=== PATIENT | female | born 1950 | race Two or more races ===

== ENCOUNTER → 2016-07-30 | Day surgery (SDC) | payer MEDICARE ==
[~2016-07-30] MED LIST: LIDOCAINE 2% INJ 20 MG/ML (20 ML MDV) ONE; LIDOCAINE 2% INJ 20 MG/ML SQ ONE
[2016-07-30 14:04] VITALS: BP 136/73; PULSE 101; TEMP 98.8
--- NOTE | 2016-07-30 15:05 | IR ---
PICC LINE PLACEMENT: HISTORY: Infection requiring long-term antibiotic therapy PROCEDURE: Ultrasound and fluoroscopic guidance of PICC line placement. COMPLICATIONS: None ANESTHESIA: 1. 1% Lidocaine locally. FINDINGS/TECHNIQUE: The procedure was explained to the patient. The risks, complications, benefits and alternatives were discussed and any questions were answered. Informed consent was obtained. The patient was placed supine on the fluoroscopic table and prepped and draped in the usual sterile formerly [facility], [facility] ion. Utilizing a 21 gauge needle and sonographic and fluoroscopic guidance, access in the vein was achieved and there is placement of a 0.018 guidewire. The vein is patent. A 4-F sheath was placed o robert the guidewire. The guidewire and dilator were removed and a 4-F. PICC line was placed through th e sheath with the tip at the level of the SVC. The sheath was removed, the catheter was flushed and sutured into position. The patient was stable throughout the procedure and remained stable upon disc harge from the Department of Radiology. The vein puncture was patent under ultrasound. A yates scale image was obtained to document patency of the vein punctured. All elements of the maximal barrier technique were utilized. FLUOROSCOPY TIME: 0.4 minute IMPRESSION: Successful PICC line placement under ultrasound and fluoroscopic guidance.
== END ==
LOC: CATHCVL 13:28
PROVIDERS: ATTEND Radiology Diagnostic Radiology
DX: B99.9 Unspecified infectious disease (principal)
CPT/HCPCS: 36569; 76937; 77001; C1751; C1769; J2001

== ENCOUNTER 2016-08-15 04:31 | Emergency (ER) | payer MEDICARE ==
[2016-08-15] MEDS ORDERED: ALTEPLASE 2 MG VIAL (CATHFLO) IV STA (05:06)
--- NOTE | 2016-08-15 05:16 | ED ---
General Adult HPI - General Source: patient, family Mode of arrival: wheelchair Limitations: no limitations - History of Present Illness -: days(s) <Mateo Harrell - Last Filed: 08/15/16 07:16> <Cruz Baker - Last Filed: 08/15/16 10:43> - General Chief complaint: Recheck/Abnormal Lab/Rx Stated complaint: Pick Line complication Time Seen by Provider: 08/15/16 04:43 - History of Present Illness Initial comments: This patient is a 66-year-old woman presenting because her PICC line appears to be flowing slower. Patient states that for 2 weeks it is been taking longer than the expected hour and 10 minutes to run the dose of vancomycin. She states that over about the past 4 days it is been taking anywhere from 2 hours to tonight it took 4 hours. They had called the infusion team about 4 days ago and were told that if things slowed she should come to the emergency department. She therefore presented today. Patient denies any other symptoms. There is no real pain at the insertion site. Patient is currently denying fevers, palpitations, chest pain or dyspnea. She states she is having the PICC line to receive vancomycin related to infection of a knee prosthesis that had been subsequently removed. (Mateo Harrell) - Related Data Home Medications Medication Instructions Recorded Confirmed Losartan Potassium [Cozaar] 50 mg PO DAILY 07/16/14 08/15/16 Montelukast Sodium [Singulair] 10 mg PO HS PRN 07/16/14 08/15/16 Multivitamins, Thera [Multivitamin] 1 tab PO DAILY 07/16/14 08/15/16 Potassium Chloride [Klor-Con 10] 10 meq PO DAILY 07/16/14 08/15/16 Sertraline HCl [Zoloft] 50 mg PO HS 07/16/14 08/15/16 Torsemide [Demadex] 20 mg PO DAILY 07/16/14 08/15/16 Albuterol Sulfate [Ventolin HFA] 2 puff INHALATION RT-Q6H PRN 07/17/14 08/15/16 Beclomethasone Dipropionate [Qvar 2 puff INHALATION RT-HS PRN 07/17/14 08/15/16 80 mcg/puff] Simvastatin [Zocor] 20 mg PO HS 12/08/14 08/15/16 Aspirin EC [Ecotrin Low Dose] 81 mg PO DAILY 09/19/15 08/15/16 Diltiazem HCl [Diltiazem 24Hr ER] 120 mg PO DAILY 10/11/15 08/15/16 Glimepiride [Amaryl] 1 mg PO HS 08/15/16 08/15/16 HYDROcodone/APAP 7.5-325MG [[place] 1 - 2 tab PO Q6HR PRN 08/15/16 08/15/16 7.5] Sennosides-Docusate Sodium 2 tab PO HS 08/15/16 08/15/16 [Senokot-S] guaiFENesin [Mucinex] 600 mg PO Q12HR PRN 08/15/16 08/15/16 Previous Rx's Medication Instructions Recorded Vancomycin 1,000 mg IVPB Q24HR #42 bag 07/23/16 Ferrous Sulfate [Iron (65 MG 325 mg PO BID-W/MEALS tab 07/26/16 Elemental)] Glimepiride [Amaryl] 2 mg PO AC-BRKFST tab 07/26/16 Magnesium Hydroxide [Milk of 2,400 mg PO DAILY PRN #0 ml 07/26/16 Magnesia Concentrate] Allergies Allergy/AdvReac Type Severity Reaction Status Date / Time codeine AdvReac Nausea & Verified 08/15/16 07:39 Vomiting Review of Systems ROS Other: All systems not noted in ROS Statement are negative. Constitutional: Denies: fever, chills, weakness Respiratory: Denies: cough, dyspnea Cardiovascular: Denies: chest pain, palpitations, syncope Gastrointestinal: Denies: vomiting, diarrhea Neurological: Denies: headache, weakness <Mateo Harrell - Last Filed: 08/15/16 07:16> ROS Other: All systems not noted in ROS Statement are negative. <Cruz Baker - Last Filed: 08/15/16 10:43> ROS Statement: Those systems with pertinent positive or pertinent negative responses have been documented in the HPI. Past Medical History Past Medical History: Asthma, Chest Pain / Angina, Diabetes Mellitus, GERD/ Reflux, Hyperlipidemia, Hypertension, Musculoskeletal Disorder, Osteoarthritis ( OA), Seizure Disorder Additional Past Medical History / Comment(s): no seizures since teens, hx. angina , spinal stenosis, constipation. History of Any Multi-Drug Resistant Organisms: None Reported Past Surgical History: Breast Surgery, Heart Catheterization, Joint Replacement , Tonsillectomy, Tubal Ligation Additional Past Surgical History / Comment(s): FOOT SURGERY, CATARACTS BILAT, CARPAL TUNNEL SURGERY RIGHT HAND, breast reduction, TOTAL RIGHT KNEE, irrigation and debridement of right knee with antibiotic spacer 07/23/16 Past Anesthesia/Blood Transfusion Reactions: Previous Problems w/ Anesthesia Additional Past Anesthesia/Blood Transfusion Reaction / Comment(s): one episode of trouble waking after anesthesia Past Psychological History: Anxiety Additional Psychological History / Comment(s): lives in the family home with her . Retired labor. 2 adult children one lives close by one in [place]. Tobacco smoking stopped when she was 39. Assessment alcohol use international travel to [facility] 11 years ago. No animal exposures. No change the home environment Smoking Status: Former smoker Past Alcohol Use History: Rare Additional Past Alcohol Use History / Comment(s): SMOKED FOR APPROX 27 YEARS 1PPD. Past Drug Use History: None Reported - Past Family History Brother(s) Family Medical History: Cancer Additional Family Medical History / Comment(s): COLON CANCER Sister(s) Family Medical History: Cancer Additional Family Medical History / Comment(s): COLON CANCER Mother Family Medical History: Cancer, Diabetes Mellitus Additional Family Medical History / Comment(s): 3 BLOCKED ARTERIES. COLON CANCER <Mateo Harrell - Last Filed: 08/15/16 07:16> General Exam Limitations: no limitations General appearance: alert, in no apparent distress Head exam: Present: atraumatic, normocephalic Respiratory exam: Present: normal lung sounds bilaterally. Absent: respiratory distress, wheezes, rales, rhonchi Cardiovascular Exam: Present: regular rate, normal rhythm, normal heart sounds. Absent: systolic murmur, diastolic murmur, rubs, gallop Skin exam: Present: warm, dry, intact, normal color, other (The patient's insertion site in the left antecubital fossa appears normal and there is no tenderness or drainage). Absent: rash <Mateo Harrell - Last Filed: 08/15/16 07:16> Course <Mateo Harrell - Last Filed: 08/15/16 07:16> <Cruz Baker - Last Filed: 08/15/16 10:43> Vital Signs 08/15/16 08/15/16 04:35 09:49 Temperature 98.7 F Pulse Rate 100 91 Respiratory 20 16 Rate Blood Pressure 148/76 144/75 O2 Sat by Pulse 96 98 Oximetry - Reevaluation(s) Reevaluation #2: 08/15/16 07:17 We attempted to clear the PICC line using alteplase. After this was withdrawn and we were still not able to drive back or flush the line. Patient probably will require PICC line replacement in the morning. (Mateo Harrell) Medical Decision Making <Mateo Harrell - Last Filed: 08/15/16 07:16> <Cruz Baker - Last Filed: 08/15/16 10:43> - Medical Decision Making I wasn't doses patient from Dr. Blunt. We did contact interventional radiologist Dr. Blunt who will do the procedure. Patient will be sent up to the [facility] for a new PICC line. Patient be discharged from the ER at this time. (Cruz Baker) Disposition <Mateo Harrell - Last Filed: 08/15/16 07:16> Time of Disposition: 10:43 <Cruz Baker - Last Filed: 08/15/16 10:43> Clinical Impression: Occlusion of peripherally inserted central catheter (PICC) line Disposition: HOME SELF-CARE Condition: Stable Instructions: Peripherally Inserted Central Catheters and Midline Catheters (ED ) Additional Instructions: Please return to the Emergency Department if symptoms worsen or any other concerns. Referrals: Duong Vazquez MD [Primary Care Provider] - 1-2 days
[2016-08-15 09:50] VITALS: RESP 16
[2016-08-15] MEDS ORDERED: LIDOCAINE 2% INJ 20 MG/ML SQ ONE (11:21)
--- NOTE | 2016-08-15 11:55 | IR ---
PICC line replacement HISTORY: Malfunctioning PICC line Under real-time fluoroscopy the catheter was noted to be the dictated in the superior vena cava rathe r than at the cavoatrial junction. By history the catheter is not functioning correctly. Following informed consent the skin around the catheter was prepped as was the catheter. Patient was draped. Lidocaine used for local anesthesia. Catheter was partially withdrawn and cut. Wire was used to exchange the indwelling catheter for a peel-away sheath. Catheter was tailored to appropriate marty th and advanced such that the distal tip is at the cavoatrial junction, spot image obtained verifying placement. Catheter was fixed to the skin. Hemostasis achieved. Catheter was aspirated and flushed w ith sterile saline. No immediate complication. IMPRESSION: Status post PICC line exchange. This procedure performed by the undersigned.
[2016-08-15 11:56] VITALS: TEMP 98.2
[2016-08-15 12:34] VITALS: BP 134/62; PULSE 80
== END 2016-08-15 12:49 | disposition home or self-care (01) ==
LOC: EC 04:31
DX: T82.898A Other specified complication of vascular prosthetic devices, implants and grafts, initial encounter (principal); I10 Essential (primary) hypertension; J45.909 Unspecified asthma, uncomplicated; F41.9 Anxiety disorder, unspecified; Z87.891 Personal history of nicotine dependence; Z98.890 Other specified postprocedural states; Z79.84 Long term (current) use of oral hypoglycemic drugs; Z88.5 Allergy status to narcotic agent; Z79.82 Long term (current) use of aspirin; Z79.899 Other long term (current) drug therapy; Z79.2 Long term (current) use of antibiotics
CPT/HCPCS: 36569; 76937; 77001; 99284; C1751; C1769 ×2; J2001; J2997

== ENCOUNTER → 2016-08-28 | Outpatient (CLI) | payer MEDICARE ==
[~2016-08-28] MED LIST changes: +DAPTOmycin 500 MG in SODIUM CHLORIDE 0.9% 50 ML IV ONE; -LIDOCAINE 2% INJ 20 MG/ML (20 ML MDV) ONE; -LIDOCAINE 2% INJ 20 MG/ML SQ ONE; +SODIUM CHLORIDE 0.9% 250 ML in EMPTY BAG 1 BAG IV PRN; +SODIUM CHLORIDE 0.9% 500 ML in EMPTY BAG 1 BAG IV PRN
[2016-08-28 14:21] VITALS: BP 104/56; PULSE 86; RESP 16; TEMP 98.4
== END | disposition home or self-care (01) ==
LOC: PROCWHC3 13:56
PROVIDERS: ATTEND Internal Medicine Infectious Disease
DX: T84.59XD Infection and inflammatory reaction due to other internal joint prosthesis, subsequent encounter (principal)
CPT/HCPCS: 96365; J0878

== ENCOUNTER → 2016-10-22 | Outpatient (CLI) | payer MEDICARE ==
[2016-10-22 10:18] LABS: EKG EKG PERFORMED
[2016-10-22 10:49] LABS: Anion Gap 16 mmol/L; Carbon Dioxide 24 mmol/L (22-30); Chloride 101 mmol/L (98-107); Potassium 4.2 mmol/L (3.5-5.1); Sodium 141 mmol/L (137-145)
[2016-10-22 10:53] LABS: Partial Thromboplastin Time 24.5 sec (22.0-30.0)
[2016-10-22 10:58] LABS: Aty Lym Flag Slight; CH 26.7; HCT 36.1 % (34.0-46.0); HDW 2.29; HGB 11.4 gm/dL (11.4-16.0); Hypochromasia Slight; MCH 27.2 pg (25.0-35.0); MCHC 31.6 g/dL (31.0-37.0); MCV 86.1 fL (80.0-100.0); Mean Platelet Volume 8.2; RBC 4.19 m/uL (3.80-5.40); RDW 14.4 % (11.5-15.5); WBC 10.3 k/uL (3.8-10.6); WBC (Perox) 9.33
[2016-10-22 11:05] LABS: INR 1.1 (<1.1); Prothrombin Time 10.8 sec (9.0-12.0)
[2016-10-22 11:13] LABS: Add Differential Manual Differential
[2016-10-22 11:15] LABS: Manual Review Performed; Nucleated Red Blood Cells 0 /100 WBC (0-0); Total Cells Counted 100
[2016-10-22 11:16] LABS: Large Platelets Present
== END | disposition home or self-care (01) ==
LOC: LABPAT 09:13
PROVIDERS: ATTEND Orthopaedic Surgery
DX: Z01.810 Encounter for preprocedural cardiovascular examination (principal); Z01.812 Encounter for preprocedural laboratory examination
CPT/HCPCS: 80051; 85025; 85610; 85730; 87070; 93005

== ENCOUNTER 2016-11-05 06:22 | Inpatient (IN) | payer MEDICARE ==
[2016-10-30 15:46] VITALS: BMI 36.3
--- NOTE | 2016-11-04 16:56 | HP ---
DATE OF ADMISSION: 11/05/2016 CHIEF COMPLAINT: Right knee pain. HISTORY OF PRESENT ILLNESS: The patient is a 66-year-old retired female who previously underwent right total knee arthroplasty with subsequent extraction for an infection on 07/23/2016. She received IV antibiotics and has been cleared by her infectious disease specialist for re-implantation. She denies fevers or chills. She has partial weight-bearing on that leg. Past medical history is significant for: 1. Type 2 diabetes. 2. Hypercholesterolemia. 3. Arthritis. Past surgical history is significant for right total knee arthroplasty with subsequent extraction and cement spacer implantation. CURRENT MEDICATIONS: 1. Cartia. 2. Celebrex. 3. Glimepiride. 4. Losartan. 5. Omeprazole. 6. Lasix. 7. Simvastatin. 8. Zoloft. She notes SENSITIVITY TO CODEINE with an ALLERGY TO VANCOMYCIN. FAMILY HISTORY: Negative. SOCIAL HISTORY: Negative for current tobacco or alcohol use. Sixteen-point review of systems otherwise reviewed and is noncontributory. On examination, the patient is approximately 4 feet 11 inches, 202 pounds of endomorphic habitus. HEENT exam is non-focal. Neck is supple. She is nontender about the lumbar spine. She has painless passive motion of the right hip. Gcfoywrs-vee-liiyx is negative. Active motion of the right knee minus 6 to 70 degrees of flexion. The incision is healed with no warmth or erythema. She has no real joint line tenderness. Fadumo's is negative. Her distal neurovascular exam appears be intact in the right lower extremity. X-rays of the right knee obtained in the office show a cement spacer in place. Previous laboratory results show CRP 2.5, sed rate 42, white blood cell count 10.3 from October 04, 2016. IMPRESSION: Status post extraction, right infected total knee arthroplasty. RECOMMENDATIONS: I talked to the patient about her options. At this point she opts to proceed with surgery. We will plan to proceed with removal of the cement spacer with re-implantation of a total knee arthroplasty. Risks and benefits were discussed at length in layman's terms. The patient underwent preoperative cardiac evaluation by Dr. Sofia Valderrama.
[~2016-11-05 06:22] MED LIST changes: +ACETAMINOPHEN TAB 500 MG TAB PO ONE; -DAPTOmycin 500 MG in SODIUM CHLORIDE 0.9% 50 ML IV ONE; +DEXAMETHASONE SOD PHOSPHATE 10 MG/ML 1 ML VIAL IV ONE; +FAMOTIDINE 20 MG/2 ML VIAL IV PRN; +HYDROmorphone 1 MG/ML 1 ML SYRINGE IVP PRN; +LIDOCAINE 1% 20 ML VIAL (10MG/ML) FOR IV START INTRADERMA PRN; +MELOXICAM 7.5 MG TAB PO ONE; +ONDANSETRON 4 MG/2 ML VIAL IVP ONE; -SODIUM CHLORIDE 0.9% 250 ML in EMPTY BAG 1 BAG IV PRN; -SODIUM CHLORIDE 0.9% 500 ML in EMPTY BAG 1 BAG IV PRN; +TRANEXAMIC ACID 1,000 MG in SODIUM CHLORIDE 0.9% 100 ML IVPB ONE; +ceFAZolin 2 GM in SODIUM CHLORIDE 0.9% 100 ML IVPB ONE
[2016-11-05 07:20] LABS: Glucose,Whole Blood 121 mg/dL (75-99)
[2016-11-05] MEDS: MIDAZOLAM 2 MG/2 ML VIAL IV PRN ×3 (07:30→08:00)
[2016-11-05] MEDS: LACTATED RINGERS 1,000 ML IV SCH (07:30)
[2016-11-05] MEDS ORDERED: ROPIVACAINE 246.25 MG, EPINEPHrine 0.5 MG, KETOROLAC 30 MG, cloNIDine HCL/PF 80 MCG, WA... MISCELLANE ONE ×5 (08:06)
[2016-11-05] MEDS ORDERED: ePHEDrine 50 MG/ML 1 ML AMP ONE (08:11)
[2016-11-05] MEDS ORDERED: SODIUM CHLORIDE 0.9% 100 ML BAG ONE (08:11)
[2016-11-05] MEDS ORDERED: PROPOFOL 10 MG/ML 20 ML VIAL IV ONE (08:11)
[2016-11-05] MEDS ORDERED: diphenhydrAMINE 50 MG/ML 1 ML VIAL ONE (08:11)
[2016-11-05] MEDS ORDERED: TRANEXAMIC ACID 1,000 MG/10 ML VIAL ONE (08:11)
[2016-11-05] MEDS ORDERED: ROPIVACAINE 1,100 MG, SODIUM CHLORIDE 0.9% 330 ML MISCELLANE PRN ×2 (08:45)
--- NOTE | 2016-11-05 08:47 | P.ONQ ---
Anesthesiology Proc Note - PNB - Peripheral Nerve Block Performed Right Adductor Canal Time Out Performed: Yes Procedure Start Time: 07:45 Indication: Analgesia Sedation Type: Sedate with meaningful contact maintained Preparation: Sterile Prep Position: Supine Catheter: Indwelling Needle Types: On-Q Needle Size: 100mm (4") Needle Gauge: 20 Technique: Ultrasound Injectate: 0.5% Ropivacaine (see comment for volume) Blood Aspirated: No Pain Paresthesia on Injection Noted: No Resistance on Injection: Normal Events: Uneventful and Well Tolerated
[2016-11-05] MEDS ORDERED: ceFAZolin 3,000 MG in SODIUM CHLORIDE 0.9% IRRIGATIO 3,000 ML IRRIGATION ONE (09:00)
[2016-11-05] MEDS ORDERED: LACTATED RINGERS 1,000 ML IV ONE (09:17)
[2016-11-05] MEDS ORDERED: ONDANSETRON 4 MG/2 ML VIAL IVP PRN (10:15)
[2016-11-05] MEDS ORDERED: hydrOXYzine PAMOATE 25 MG CAP PO PRN (10:15)
[2016-11-05] MEDS ORDERED: MAGNESIUM HYDROXIDE 2,400 MG/10 ML CUP PO PRN (10:15)
[2016-11-05] MEDS ORDERED: HYDROcodone/APAP 7.5-325MG 1 EACH TAB PO PRN (10:15)
[2016-11-05] MEDS ORDERED: NALOXONE 0.4 MG/ML 1 ML VIAL IV PRN (10:15)
[2016-11-05] MEDS ORDERED: HYDROmorphone 1 MG/ML 1 ML SYRINGE IVP PRN ×2 (10:15)
--- NOTE | 2016-11-05 10:47 | P.OP ---
Date of Procedure: 11/05/16 Preoperative Diagnosis: Status post extraction right total knee arthroplasty for infection Postoperative Diagnosis: Same Procedure(s) Performed: Extraction cement spacer with tibial and femoral components right knee with revision total knee arthroplasty Implants: Depuy TC3 size 2 cemented femoral component, size 2 cemented tibial component, 10 mm articular surface, 31 mm femoral sleeve, 29 mm tibial sleeve, 10 x 75 mm femoral and tibial stems. Anesthesia: regional, local, spinal Surgeon: Reynaldo Durham Accounts Receivable Specialist #1: Jules Harvey Estimated Blood Loss (ml): 100 Pathology: none sent Condition: stable Disposition: PACU Indications for Procedure: The patient's a 66-year-old female who presents after undergoing extraction of an infected right total knee arthroplasty with cement spacer implantation who appeared to have resolved her infection with IV antibiotics. She was cleared by infectious disease for reimplantation. A discussion of the risks and benefits of operative intervention was made with patient. She opted to proceed. Operative risks to include recurrence of infection, neurovascular injury, development of blood clots, possible component loosening, possible component failure need for subsequent procedures was discussed. Informed consent was obtained. Operative Findings: As below Description of Procedure: The patient was brought to the operating room, and after induction of spinal anesthesia the right lower extremity was prepped and draped in normal fashion. The tourniquet was inflated to 270 mmHg. A previous midline incision was utilized. The skin was incised sharply. Subcutaneous tissues were divided sharply. Electrocautery was used for hemostasis. A medial parapatellar arthrotomy was performed. There was no significant effusion or synovitis. The medial soft tissues to include the superficial and deep portions of the medial collateral ligament were elevated subperiosteally. The patella was then everted and the knee flexed. A small sagittal saw was used to break the bone/ cement interface of the tibial component. The tibial spacer was removed. The femoral component was easily removed by hand. The residual proximal tibial cement was removed. The proximal tibia was then reamed to the appropriate depth with a 10 mm reamer. The metaphyseal reamer was utilized to the appropriate depth. A 29 mm metaphyseal broach was inserted and fully seated. A clean up cut was made over the top of this. The tibia sized most appropriate size to. The broach was removed and the trial tibial component placed in the same rotation. Attention was then paid towards preparing the distal femur. The canal was reamed up to 10 mm proximally. The distal canal was reamed with the appropriate distal reamer to the appropriate depth for TC 3 component. The broach was inserted to the appropriate depth as well. The distal cutting block was placed in the distal cut made. I did not need distal augments. The chamfer cuts were made. The box guide was placed in the intercondylar box was cut was made utilizing a reciprocating saw. The bone fragment was removed. The broach was removed and the trial femoral component was inserted and was fully seated. There was good medial to lateral and anterior to posterior fit. The trial 10 mm articular surface was placed. I was able to obtain full flexion and extension with good stability with varus valgus stress. The previous placed patellar component appeared stable. The trial components were then removed. The bony surfaces were prepared with pulsatile lavage and dried. The flexion and extension gaps were checked and felt to be symmetric. The tibial component was then cemented in placed and was fully seated. There is good rotational stability. Excess cement was removed. The femoral component cemented placed and was fully seated. Excess cement was removed. The trial 10 mm articular surface was placed and the knee was put in full extension. After the cement had sufficiently hardened, the final 10 mm implant was inserted. Again there was good stability with varus valgus stress and I was able to obtain full flexion and extension. I did previously inject the posterior soft tissues with ropivacaine. The medial parapatellar arthrotomy was closed with running #2 Ethibond suture. A deep drain was placed exiting laterally. The tourniquet was deflated with approximate a 70 minutes total tourniquet time. The subcuticular tissues were reapproximated with interrupted 2-0 Vicryl sutures. The skin was reapproximated with 3-0 subcuticular strata fix suture. Skin tape and adhesive was applied. A sterile dressing was applied. The patient was awoken from sedation and transferred to the recovery room in good condition. Blood loss was estimated at 100 mL. No complications were incurred. Sponge and needle counts were correct at the end the case.
[2016-11-05] MEDS ORDERED: KETOROLAC 30 MG/ML 1 ML VIAL IVP ONE (10:51)
[2016-11-05 11:07] LABS: Glucose,Whole Blood 188 mg/dL (75-99)
--- NOTE | 2016-11-05 11:22 | XR ---
EXAMINATION TYPE: XR knee limited RT DATE OF EXAM: 11/05/2016 10:53 AM CLINICAL HISTORY: Right knee pain and arthritis status post total knee replacement. TECHNIQUE: Portable AP and crosstable lateral views of the right knee are obtained immediately posto peratively. COMPARISON: None FINDINGS: Metallic hardware from long stem total right knee arthroplasty is seen and appears satisfa ctory in alignment and position. There is evidence of recent surgery with diffuse subcutaneous gas , soft tissue swelling, and percutaneous surgical drain noted. IMPRESSION: METALLIC HARDWARE FROM LONGSTEM TOTAL RIGHT KNEE ARTHROPLASTY IS SATISFACTORY IN ALIGNME NT.
[2016-11-05] MEDS: traMADol 50 MG TAB PO SCH ×3 (12:09→22:28)
[2016-11-05] MEDS: ceFAZolin 2 GM in SODIUM CHLORIDE 0.9% 100 ML IVPB SCH ×2 (15:07→23:29)
[2016-11-05 18:00] LABS: Glucose,Whole Blood 270 mg/dL (75-99)
[2016-11-05] MEDS: INSULIN LISPRO (humaLOG) 300 UNIT/3 ML VIAL SQ SCH ×2 (18:05→22:32)
[2016-11-05] MEDS ORDERED: ALBUTEROL NEBULIZED 2.5 MG/3 ML INHALATION PRN (18:20)
[2016-11-05] MEDS: BUDESONIDE 1 MG/2 ML NEBU INHALATION SCH (19:51)
[2016-11-05 20:57] LABS: Glucose,Whole Blood 245 mg/dL (75-99)
[2016-11-05] MEDS: MONTELUKAST 10 MG TAB PO SCH (22:23)
[2016-11-05] MEDS: SERTRALINE 50 MG TAB PO SCH (22:23)
[2016-11-05] MEDS: ATORVASTATIN 10 MG TAB PO SCH (22:23)
[2016-11-05] MEDS: metFORMIN 500 MG TAB PO SCH (22:23)
[2016-11-05] MEDS: SENNOSIDES-DOCUSATE SODIUM 1 EACH TAB PO SCH (22:29)
[2016-11-06 02:12] VITALS: RESP 16
[2016-11-06] MEDS: LACTATED RINGERS 1,000 ML IV SCH ×2 (03:40→23:09)
[2016-11-06] MEDS: HYDROcodone/APAP 7.5-325MG 1 EACH TAB PO PRN ×3 (07:15→19:29)
[2016-11-06] MEDS: metFORMIN 500 MG TAB PO SCH ×2 (07:16→17:59)
[2016-11-06] MEDS: FERROUS SULFATE 325 MG TAB PO SCH ×2 (07:16→17:59)
[2016-11-06] MEDS: RIVAROXABAN 10 MG TAB PO SCH (07:17)
[2016-11-06] MEDS: FAMOTIDINE 20 MG TAB PO SCH (07:22)
[2016-11-06 07:30] LABS: Glucose,Whole Blood 119 mg/dL (75-99)
[2016-11-06] MEDS: INSULIN LISPRO (humaLOG) 300 UNIT/3 ML VIAL SQ SCH ×4 (07:58→21:38)
[2016-11-06 08:10] LABS: Basophils % (A) 0 %; CH 26.5; Eosinophils % (A) 0 %; HCT 29.9 % (34.0-46.0); HDW 2.33; Hypochromasia Slight; Luc # (Auto) 0.44; Luc % (Auto) 4; Lymphocytes # (A) 1.8 k/uL (1.0-4.8); Lymphocytes % (A) 16 %; MCH 28.2 pg (25.0-35.0); MCHC 32.8 g/dL (31.0-37.0); MCV 85.9 fL (80.0-100.0); Mean Platelet Volume 7.9; Monocytes # (A) 0.6 k/uL (0-1.0); Monocytes % (A) 6 %; Neutrophils # (A) 8.4 k/uL (1.3-7.7); Neutrophils % (A) 74 %; RBC 3.49 m/uL (3.80-5.40); RDW 14.5 % (11.5-15.5); WBC 11.3 k/uL (3.8-10.6); WBC (Perox) 11.44
[2016-11-06 08:15] LABS: HGB 9.8 gm/dL (11.4-16.0)
--- NOTE | 2016-11-06 09:21 | P.PN ---
Subjective pod 1 with on q pump intact; patient doing ok; catheter system intact Objective - Vital Signs Vital signs: Vital Signs Temp 97.3 F L 11/06/16 07:44 Pulse 73 11/06/16 08:00 Resp 16 11/06/16 08:00 BP 107/54 11/06/16 07:44 Pulse Ox 95 11/06/16 08:18 Intake & Output 11/05/16 11/06/16 11/06/16 18:59 06:59 18:59 Intake Total 2301 480 Output Total 1100 1025 300 Balance 1201 -545 -300 Weight 81.647 kg Intake: IV 2301 480 Lactated Ringers 1,000 ml 500 480 @ 40 mls/hr IV .Q24H ELLEN Rx#:[id number] Output: Drainage 25 Right Knee 25 Urine 1000 1000 300 Uretheral ([place]) 1000 300 Estimated Blood Loss 100 Other: Voiding Method Indwelling Catheter Indwelling Catheter - Labs CBC & Chem 7: 11/06/16 07:28 Labs: Abnormal Lab Results - Last 24 Hours (Table) 11/05/16 11/05/16 11/05/16 Range/Units 11:05 17:55 20:56 WBC (3.8-10.6) k/uL RBC (3.80-5.40) m/uL Hgb (11.4-16.0) gm/dL Hct (34.0-46.0) % Neutrophils # (1.3-7.7) k/uL POC Glucose (mg/dL) 188 H 270 H 245 H (75-99) mg/dL 11/06/16 11/06/16 Range/Units 07:26 07:28 WBC 11.3 H (3.8-10.6) k/uL RBC 3.49 L (3.80-5.40) m/uL Hgb 9.8 L D (11.4-16.0) gm/dL Hct 29.9 L (34.0-46.0) % Neutrophils # 8.4 H (1.3-7.7) k/uL POC Glucose (mg/dL) 119 H (75-99) mg/dL
[2016-11-06] MEDS: LOSARTAN 50 MG TAB PO SCH (10:01)
[2016-11-06] MEDS: DILTIAZEM CD 120 MG CAP.ER.24H PO SCH (10:01)
[2016-11-06] MEDS: TORSEMIDE 20 MG TAB PO SCH (10:01)
[2016-11-06] MEDS: traMADol 50 MG TAB PO SCH ×4 (10:15→21:39)
[2016-11-06 11:43] LABS: Glucose,Whole Blood 134 mg/dL (75-99)
--- NOTE | 2016-11-06 11:49 | P.PN ---
Subjective Principal diagnosis: Status post revision right total knee arthroplasty Patient is seen today resting in her hospital bed, she appears comfortable. Her pain is well-controlled. She is up and ambulating well. She denies any headaches, lightheadedness, chest pain, shortness of breath. Objective - Vital Signs Vital signs: Vital Signs Temp 97.3 F L 11/06/16 07:44 Pulse 82 11/06/16 09:58 Resp 16 11/06/16 08:00 BP 107/63 11/06/16 09:58 Pulse Ox 95 11/06/16 08:18 Intake & Output 11/05/16 11/06/16 11/06/16 18:59 06:59 18:59 Intake Total 2301 480 Output Total 1100 1025 300 Balance 1201 -545 -300 Weight 81.647 kg Intake: IV 2301 480 Lactated Ringers 1,000 ml 500 480 @ 40 mls/hr IV .Q24H ELLEN Rx#:[id number] Output: Drainage 25 Right Knee 25 Urine 1000 1000 300 Uretheral ([place]) 1000 300 Estimated Blood Loss 100 Other: Voiding Method Indwelling Catheter Indwelling Catheter - Exam Right lower extremity: Incisions clean, dry and intact. Minimal soft tissue swelling around the knee. Calf soft, no tenderness with palpation. Distal neurovascular exam is intact. - Labs CBC & Chem 7: 11/06/16 07:28 Labs: Abnormal Lab Results - Last 24 Hours (Table) 11/05/16 11/05/16 11/06/16 Range/Units 17:55 20:56 07:26 WBC (3.8-10.6) k/uL RBC (3.80-5.40) m/uL Hgb (11.4-16.0) gm/dL Hct (34.0-46.0) % Neutrophils # (1.3-7.7) k/uL POC Glucose (mg/dL) 270 H 245 H 119 H (75-99) mg/dL 11/06/16 11/06/16 Range/Units 07:28 11:40 WBC 11.3 H (3.8-10.6) k/uL RBC 3.49 L (3.80-5.40) m/uL Hgb 9.8 L D (11.4-16.0) gm/dL Hct 29.9 L (34.0-46.0) % Neutrophils # 8.4 H (1.3-7.7) k/uL POC Glucose (mg/dL) 134 H (75-99) mg/dL Assessment and Plan Plan: Assessment: 1. Postop day #1 status post revision right total knee arthroplasty Plan: 1. Pain control, continue use of oral medication 2. Hold off on CPM 3. Continue with physical therapy 4. GI and DVT prophylaxis, continue current medication 5. Medical recommendations 6. Discharge planning: Patient will likely be discharged home tomorrow Time with Patient: Less than 30
[2016-11-06 13:22] LABS: Hemoglobin A1C 6.7 % (4.2-6.1)
--- NOTE | 2016-11-06 15:11 | CONS ---
DATE OF CONSULTATION: 11/06/2016 REASON FOR CONSULTATION: Medical management requested by Dr. Durham. CONSULTATION: This is a pleasant 66-year-old patient of Dr. Vazquez whose chronic stable medical conditions include asthma, diabetes, GERD, hyperlipidemia, hypertension, osteoarthritis. Patient did have seizures as a teen. Also has spinal stenosis. Patient did have a cardiac two years ago that was negative and has underlying angina. The patient also has chronic bilateral lower extremity lymphedema. Patient has undergone revision of the right total knee arthroplasty, following a course of antibiotics. Being followed by Dr. Mcdaniel. Postprocedure some pain is present. No nausea or vomiting. No chest pain. Did work with physical therapy. REVIEW OF SYSTEMS: CONSTITUTIONAL: HEENT: None. RESPIRATORY: None. CARDIOVASCULAR: None. GASTROINTESTINAL: None. GENITOURINARY: None. MUSCULOSKELETAL: Aches and pains in different joints. Dermatological: None. HEMATOLOGICAL: None. LYMPHATIC: None. PSYCHIATRY: None. NEUROLOGICAL: None. PAST MEDICAL HISTORY: Asthma, angina, diabetes mellitus type 2, GERD, hyperlipidemia, osteoarthritis, essential hypertension, seizure disorder as a teen, not anymore, spinal stenosis, angina, bilateral lower extremity lymphedema. PAST SURGICAL HISTORY: Breast surgery, cardiac cath, joint replacement, tonsillectomy, tubal ligation, bilateral cataract surgery, carpal tunnel surgery in the right, breast reduction, total right total knee, the patient has ( ) in the right knee. SOCIAL HISTORY: The patient smoked for about 27 years 1 pack a day; stopped in 1986. Alcohol rarely. . Family history of diabetes mellitus type 2, coronary artery disease and colon cancer. HOME MEDICATIONS: 1. Metformin 1000 mg p.o. b.i.d. 2. Demadex 20 mg p.o. daily. 3. Zocor 20 mg p.o. q.h.s. 4. Zoloft 50 mg p.o. q.h.s. 5. Potassium 10 mEq p.o. daily. 6. Multivitamin 1 tablet p.o. daily. 7. Singulair 10 mg p.o. q.h.s. p.r.n. 8. Cozaar 50 mg p.o. daily. 9. [place] 7.5, 1 to 2 tablets q.6 p.r.n. 10. Iron 325 p.o. b.i.d. with meals. 11. Cardizem 24 mg ER 120 mg p.o. daily. 12. Qvar 1 puff q.h.s. p.r.n. 13. Aspirin 81 mg p.o. daily. 14. Ventolin HFA 2 puffs q.6 p.r.n. 15. Xarelto started. ALLERGIES TO VANCOMYCIN AND CODEINE. On examination, temperature 97.3, pulse 73, respiratory rate 16, blood pressure 107/54, pulse ox 95% on room air. GENERAL APPEARANCE: Well built, body mass index 36.4, sitting up in a chair, not in distress. EYES: Pupils equal. Conjunctivae normal. HEENT: External appearance of nose and ears normal. Oral cavity normal. NECK: JVD not raised. Mass not palpable. RESPIRATORY: Effort normal. LUNGS: Clear. CARDIOVASCULAR: First and second sounds normal. No edema. ABDOMEN: Soft, nontender. Liver and spleen not palpable. LYMPHATIC: No lymph node palpable in neck or axillae. PSYCHIATRY: Alert and oriented times three. Mood and affect normal. MUSCULOSKELETAL: Dressing over the right knee. EXTREMITIES: The patient has got edema of the lower extremities. INVESTIGATIONS: White count 11.3, hemoglobin 9.8. Patient's hemoglobin was 11.4 on 10/22/2016. ASSESSMENT: 1. Revision right total knee arthroplasty after having finished a course of antibiotics. 2. Intermittent asthma, stable. 3. Type 2 diabetes mellitus, ( ) hypoglycemic. 4. Gastroesophageal reflux disease. 5. Hyperlipidemia. 6. Essential hypertension. 7. Primary osteoarthritis in multiple joints, bilateral. 8. Chronic spinal stenosis. 9. Chronic stable angina with negative cardiac catheterization 2 years ago. 10. Bilateral lower extremity lymphedema. PLAN: Home medications are resumed. The patient for DVT prophylaxis. Was on Xarelto. Care was discussed with the patient. Home medications are resumed. Thank you Dr. Durham. Copy to Dr. Vazquez.
[2016-11-06 16:48] LABS: Glucose,Whole Blood 156 mg/dL (75-99)
[2016-11-06] MEDS: BUDESONIDE 1 MG/2 ML NEBU INHALATION SCH (19:20)
[2016-11-06] MEDS: ATORVASTATIN 10 MG TAB PO SCH (20:26)
[2016-11-06] MEDS: SERTRALINE 50 MG TAB PO SCH (20:26)
[2016-11-06] MEDS: SENNOSIDES-DOCUSATE SODIUM 1 EACH TAB PO SCH (20:26)
[2016-11-06] MEDS: MONTELUKAST 10 MG TAB PO SCH (20:27)
[2016-11-06 21:28] LABS: Glucose,Whole Blood 127 mg/dL (75-99)
[2016-11-07] MEDS: HYDROcodone/APAP 7.5-325MG 1 EACH TAB PO PRN ×2 (03:47→08:47)
[2016-11-07 07:12] LABS: Glucose,Whole Blood 100 mg/dL (75-99)
[2016-11-07 07:16] VITALS: BP 120/67; PULSE 82; TEMP 97.1
[2016-11-07] MEDS: INSULIN LISPRO (humaLOG) 300 UNIT/3 ML VIAL SQ SCH ×2 (07:53→11:53)
--- NOTE | 2016-11-07 08:42 | P.PN ---
Progress Note - Text The patient is status post right adductor canal catheter placement. The catheter was placed for postoperative pain control, status post total right arthroplasty. Ropivacaine 0.2% is infusing at 12 mLs per hour. The patient has no complaints of right lower extremity numbness or weakness. Patient's VAS score is 2-10. Assessment: Patient's adductor canal catheter is in place and working appropriately. Plan: continue infusion and adjust it as needed.
[2016-11-07] MEDS: FERROUS SULFATE 325 MG TAB PO SCH (08:47)
[2016-11-07] MEDS: FAMOTIDINE 20 MG TAB PO SCH (08:47)
[2016-11-07] MEDS: LOSARTAN 50 MG TAB PO SCH (08:48)
[2016-11-07] MEDS: RIVAROXABAN 10 MG TAB PO SCH (08:48)
[2016-11-07] MEDS: DILTIAZEM CD 120 MG CAP.ER.24H PO SCH (08:48)
[2016-11-07] MEDS: metFORMIN 500 MG TAB PO SCH (08:48)
[2016-11-07] MEDS: TORSEMIDE 20 MG TAB PO SCH (08:48)
[2016-11-07] MEDS: traMADol 50 MG TAB PO SCH ×2 (08:49→12:54)
--- NOTE | 2016-11-07 09:34 | P.PN ---
Subjective Principal diagnosis: Status post revision right total knee arthroplasty Patient is seen today resting in her hospital bed, she appears comfortable. Her pain is well-controlled. She is up and ambulating well. She denies any headaches, lightheadedness, chest pain, shortness of breath. Objective - Vital Signs Vital signs: Vital Signs Temp 97.1 F L 11/07/16 07:00 Pulse 82 11/07/16 07:00 Resp 16 11/07/16 07:00 BP 120/67 11/07/16 07:00 Pulse Ox 95 11/07/16 07:00 Intake & Output 11/06/16 11/07/16 11/07/16 18:59 06:59 18:59 Output Total 600 Balance -600 Output: Urine 600 Uretheral (Hopson) 300 Other: Voiding Method Indwelling Catheter Toilet # Voids 1 1 1 - Exam Right lower extremity: Incisions clean, dry and intact. Minimal soft tissue swelling around the knee. Calf soft, no tenderness with palpation. Distal neurovascular exam is intact. - Labs CBC & Chem 7: 11/06/16 07:28 Labs: Abnormal Lab Results - Last 24 Hours (Table) 11/06/16 11/06/16 11/06/16 Range/Units 07:28 11:40 16:43 POC Glucose (mg/dL) 134 H 156 H (75-99) mg/dL Hemoglobin A1c 6.7 H (4.2-6.1) % 11/06/16 11/07/16 Range/Units 21:27 07:11 POC Glucose (mg/dL) 127 H 100 H (75-99) mg/dL Hemoglobin A1c (4.2-6.1) % Assessment and Plan Plan: Assessment: 1. Postop day #2 status post revision right total knee arthroplasty Plan: 1. Pain control, continue use of oral medication 2. Hold off on CPM 3. Continue with physical therapy 4. GI and DVT prophylaxis, continue current medication 5. Medical recommendations 6. Discharge planning: Patient will be discharged home today Time with Patient: Less than 30
--- NOTE | 2016-11-07 09:39 | P.DS ---
Providers Date of admission: 11/05/16 06:22 Expected date of discharge: 11/07/16 Attending physician: Reynaldo Durham Consults: 11/05/16 10:15 Consult Physician Routine Consulting Provider: Jony Espinosa Consult Reason/Comments: medical mangement Do you want consulting provider notified?: Yes Primary care physician: [facility] Course: Date of admission: 11/05/2016 Date of discharge: 11/07/2016 Admission diagnosis: Status post revision right total knee arthroplasty Discharge diagnosis: Same Attending physician: Dr. Durahm Surgical procedures: Revision right total knee arthroplasty Brief history: Patient is a 66-year-old female with a history of a previous infected right periprosthetic joint infection. Patient had underwent a incision with drainage and extraction of components with antibiotic spacer placement back in June. Patient is receiving proper IV antibiotics and treatment of the last few months, and she was scheduled for a revision procedure on 11/05/2016. Hospital course: Details of patient's surgery can be found in operative report. Patient tolerated the procedure well and was subsequently transported to orthopedic floor. Patient's orthopeidc and medical care was provided daily. Patient had daily laboratory tests performed for evaluation of overall blood counts. Patient had daily physical therapy to include strengthening range of motion as well as education with walker ambulation. Patient was treated with Xarelto for their postoperative DVT prophylaxis during their inpatient stay. Patient was noted to have a relatively uneventful postoperative course. Patient reported satisfactory pain control with oral pain medications by postoperative day 0. Patient showed satisfactory progress with physical therapy. Patient moved steadily through the program and had no difficulty meeting the goals by postoperative day 2. Given patient's otherwise satisfactory course and having met physical therapy goals, plan is to discharge patient home on postoperative day 2. Discharge condition/disposition: Patient will be discharged home in stable condition. Discharge medications: Instructions are given on resumption of patient's normal daily medications per primary care recommendation, in addition patient will be prescribed [place] 7.5 mg/325 mg, Xarelto 10 mg. Discharge instructions: 1. Wound care and infection precautions, keep incision dry and covered while showering, no lotions, creams, moisturizers. No soaking, tubs, pools, hottubs. Do not scrub over the incision. 2. Weight-bear as tolerated with walker / cane until follow-up. 3. Ice and elevate when necessary. Do not exceed 20 minutes per hour with ice pack. 4. Utilize compression sleeve until seen at first follow up appointment. 5. Visiting nursing care. 6. Home physical therapy. 7. Pain meds and anticoagulants per prescription. 8. Pain medication has potential to cause constipation. Increase oral fluid and fiber intake. Contact primary care provider if you have not had a bowel movement within 48 hours after discharge 9. No anti-inflammatory medication until discussed at first post operative visit, this including Motrin, Aleve, Mobic, Diclofenac. 10. Follow up in office at 2 weeks postop with Francis Harvey PA-C 11. Follow up with your primary care doctor 7-10 days after discharge. 12. Contact [facility] with any questions, . Procedures: Revision right total knee arthroplasty Patient Condition at Discharge: Good Plan - Discharge Summary New Discharge Prescriptions: HYDROcodone/APAP 7.5-325MG [[place] 7.5] 1 - 2 each PO Q6HR PRN #60 tab PRN Reason: Pain Rivaroxaban [Xarelto] 10 mg PO DAILY #12 tab Discharge Medication List Losartan Potassium [Cozaar] 50 mg PO QAM 07/16/14 [History] Montelukast Sodium [Singulair] 10 mg PO HS PRN 07/16/14 [History] Multivitamins, Thera [Multivitamin (formulary)] 1 tab PO DAILY 07/16/14 [History ] Potassium Chloride [Klor-Con 10] 10 meq PO DAILY 07/16/14 [History] Sertraline HCl [Zoloft] 50 mg PO HS 07/16/14 [History] Torsemide [Demadex] 20 mg PO QAM 07/16/14 [History] Albuterol Sulfate [Ventolin HFA] 2 puff INHALATION RT-Q6H PRN 07/17/14 [History] Simvastatin [Zocor] 20 mg PO HS 12/08/14 [History] Aspirin EC [Ecotrin Low Dose] 81 mg PO DAILY 09/19/15 [History] Diltiazem HCl [Diltiazem 24Hr ER] 120 mg PO QAM 10/11/15 [History] Ferrous Sulfate [Iron (65 MG Elemental)] 325 mg PO BID-W/MEALS tab 07/26/16 [Rx ] HYDROcodone/APAP 7.5-325MG [[place] 7.5] 1 - 2 tab PO Q6HR PRN 08/15/16 [History] Beclomethasone Dipropionate [Qvar 80 mcg] 1 puff INHALATION RT-HS PRN 08/28/16 [ History] metFORMIN HCL 1,000 mg PO BID 10/30/16 [History] Rivaroxaban [Xarelto] 10 mg PO DAILY #12 tab 11/05/16 [Rx] HYDROcodone/APAP 7.5-325MG [[place] 7.5] 1 - 2 each PO Q6HR PRN #60 tab 11/07/16 [ Rx] Follow up Appointment(s)/Referral(s): Jules Harvey PAC [PHYSICIAN FRAMING MILL OPERATOR] - 2 Weeks [facility] Visiting Nurse, [NON-STAFF] - 1 Week Patient Instructions/Handouts: Revision Total Joint Arthroplasty (DC) Activity/Diet/Wound Care/Special Instructions: Orthopedic Discharge Instructions: 1. Wound care and infection precautions, keep incision dry and covered while showering, no lotions, creams, moisturizers. No soaking, pools, hot tubs. Do not scrub over incision. 2. Weight-bear as tolerated with walker / cane until follow-up. 3. Ice and elevate when necessary. Do not exceed 20 minutes per hour with ice pack. 4. Utilize compression sleeve until seen at first follow up appointment. 5. Visiting nursing care. 6. Home physical therapy. 7. Pain meds and anticoagulants per prescription. 8. Pain medication has potential to cause constipation. Increase oral fluid and fiber intake. Contact primary care provider if you have not had a bowel movement within 48 hours after discharge. 9. No anti-inflammatory medication until discussed at first post operative visit, this including Motrin, Aleve, Mobic, Diclofenac. 10. Follow up in office at 2 weeks postop with Francis Harvey PA-C 11. Follow up with your primary care doctor 7-10 days after discharge. 12. Contact [facility] with any questions, . Discharge Disposition: HOME WITH HOME HEALTH SERVICES
[2016-11-07 11:54] LABS: Glucose,Whole Blood 120 mg/dL (75-99)
--- NOTE | 2016-11-07 21:20 | PN ---
DATE OF SERVICE: 11/07/2016 PRESENTING COMPLAINT: Right knee surgery. INTERVAL HISTORY: Patient is status post right knee surgery, doing well. Pain is controlled. No nausea or vomiting. No chest pain. Working with Physical Therapy. Review of systems done for constitutional, cardiovascular, GI, pulmonary; relevant findings as above. Current medications are reviewed. On examination, temperature 97.1, pulse 82, respiration 16, blood pressure 120/67, pulse ox 95% on room air. GENERAL APPEARANCE: Sitting up, comfortable. EYES: Pupils equal. Conjunctivae normal. NECK: JVD not raised. RESPIRATORY: Effort normal. Lungs are clear. CARDIOVASCULAR: First and second sounds normal. No edema. ABDOMEN: Soft, nontender. Liver and spleen not palpable. PSYCHIATRY: Alert and oriented x3. Mood and affect normal. INVESTIGATIONS: No blood work from today. Accu-Cheks are noted. ASSESSMENT: 1. Revision right total knee arthroplasty after having finished a course of antibiotics for infected prosthesis. 2. Intermittent asthma, stable. 3. Diabetes mellitus, type 2, on oral hypoglycemic. 4. Gastroesophageal reflux disease. 5. Hyperlipidemia. 6. Essential hypertension. 7. Primary osteoarthritis in multiple joints bilaterally. 8. Chronic spinal stenosis. 9. Chronic stable angina with negative cardiac catheterization 2 years ago per patient. 10. Bilateral lower extremity lymphedema. PLAN: Patient is doing well. Continue current medication and treatment plan. Thank you, Dr. Durham.
== END 2016-11-07 13:30 | disposition home health service (06) | DRG 468 ==
LOC: 2ORMAIN 06:22 → 3SUR 10:24
PROVIDERS: ADMIT Orthopaedic Surgery; ATTEND Orthopaedic Surgery
PROC: 0SRC0J9 Replacement of Right Knee Joint with Synthetic Substitute, Cemented, Open Approach (ICD-10-PCS; principal; 2016-11-05 08:00)
PROC: 0SPC08Z Removal of Spacer from Right Knee Joint, Open Approach (ICD-10-PCS; principal; 2016-11-05 08:00)
DX: Z47.33 Aftercare following explantation of knee joint prosthesis (principal); E11.649 Type 2 diabetes mellitus with hypoglycemia without coma; E78.00 Pure hypercholesterolemia, unspecified; E78.5 Hyperlipidemia, unspecified; I10 Essential (primary) hypertension; I89.0 Lymphedema, not elsewhere classified; J45.20 Mild intermittent asthma, uncomplicated; K21.9 Gastro-esophageal reflux disease without esophagitis; M15.9 Polyosteoarthritis, unspecified; M48.00 Spinal stenosis, site unspecified; Z79.82 Long term (current) use of aspirin; Z79.84 Long term (current) use of oral hypoglycemic drugs; Z79.899 Other long term (current) drug therapy; Z82.49 Family history of ischemic heart disease and other diseases of the circulatory system; Z87.891 Personal history of nicotine dependence; Z88.1 Allergy status to other antibiotic agents
CPT/HCPCS: 83036; 85025; 94640; 94760

== ENCOUNTER → 2023-06-16 | Outpatient (CLI) | payer MEDICARE ==
[2023-06-16 15:28] LABS: Basophils # (A) 0.07 X 10*3/uL (0.00-0.10); Basophils % (A) 0.8 %; Eosinophils # (A) 0.16 X 10*3/uL (0.04-0.35); Eosinophils % (A) 1.7 %; HCT 31.9 % (37.2-46.3); HGB 9.5 g/dL (12.0-15.0); Lymphocytes # (A) 2.75 X 10*3/uL (0.90-5.00); MCH 24.2 pg (27.0-32.0); MCHC 29.8 g/dL (32.0-37.0); MCV 81.4 FL (80.0-97.0); Mean Platelet Volume 11.2 FL (9.5-12.2); Monocytes # (A) 0.82 X 10*3/uL (0.20-1.00); Monocytes % (A) 8.9 %; NRBC Per 100 WBC 0 X 10*3/uL (0.00-0.01); Neutrophils # (A) 5.36 X 10*3/uL (1.80-7.70); Neutrophils % (A) 58.4 %; Platelet Count 320 X 10*3/uL (140-440); RBC 3.92 X 10*6/uL (4.10-5.20); RDW 15.8 % (11.5-14.5); WBC 9.18 X 10*3/uL (4.50-10.00)
[2023-06-16 15:55] LABS: Blood Urea Nitrogen 15.8 mg/dL (9.0-27.0); Carbon Dioxide 23.7 mmol/L (21.6-31.8); Chloride 102 mmol/L (96-109); Glucose 97 mg/dL (70-110); Potassium 4.2 mmol/L (3.5-5.5); Sodium 140 mmol/L (135-145)
== END | disposition home or self-care (01) ==
LOC: LABPAT 10:34
PROVIDERS: ATTEND Obstetrics & Gynecology
DX: Z01.812 Encounter for preprocedural laboratory examination (principal); E11.9 Type 2 diabetes mellitus without complications; N81.11 Cystocele, midline
CPT/HCPCS: 80051; 82565; 82947; 84520; 85025; 86850; 86900; 86901; 87086

== ENCOUNTER 2023-06-24 10:33 | Day surgery (SDC) | payer MEDICARE ==
[2023-06-16 15:49] VITALS: BMI 37.3
--- NOTE | 2023-06-24 02:37 | HP ---
HISTORY AND PHYSICAL DATE OF SCHEDULED SURGERY: 06/24/2023 HISTORY OF PRESENT ILLNESS: The patient is a 72-year-old 2, para 2-0-0-2 who presented to the office having findings of a grade 2-3 cystocele which has become symptomatic. She had a trial of local estrogen by itself, which did not completely alleviate the symptoms and wishes to have surgical repair. At exam, we were unable to demonstrate any significant uterine prolapse or rectocele and have opted to proceed with cystocele repair, possible vaginal hysterectomy and/or rectocele repair. PAST MEDICAL HISTORY: Significant for anxiety, asthma, diabetes, and hypertension. SURGICAL HISTORY: Significant for breast reduction surgery, foot surgery, knee surgery, and tubal ligation. There are no reported anesthetic concerns. OBSTETRICAL HISTORY: 2, para 2-0-0-2 with 2 term vaginal deliveries. GYNECOLOGIC HISTORY: Unremarkable except as related to history of present illness. FAMILY HISTORY: Noncontributory. SOCIAL HISTORY: The patient is and retired. She is a 4-ahos-kxk-day smoker and reports moderate amount of daily caffeine intake, but no other social concerns. CURRENT MEDICATIONS: 1. Cartia 120 mg daily. 2. Klor-Con 10 mEq daily. 3. Lipitor 20 mg daily. 4. Losartan 50 mg daily. 5. Metformin 1000 mg twice daily. 6. Omeprazole 20 mg daily. 7. Qvar inhaler 2 times daily as needed. 8. Singulair 10 mg daily. 9. Torsemide 20 mg daily. 10.Ventolin metered-dose inhaler p.r.n. 11.Zoloft 50 mg daily. ALLERGIES: Reportedly to vancomycin and codeine phosphate. REVIEW OF SYSTEMS: Confined to history of present illness. PHYSICAL EXAMINATION: VITAL SIGNS: Stable. The patient is afebrile. GENERAL: This is a well-developed, [id number] obese white female, in no acute distress. HEART: Regular rhythm and rate without murmur. LUNGS: Clear to auscultation bilaterally in all allen. ABDOMEN: Nondistended, has normoactive bowel sounds, soft, nontender, without any palpable masses aside from the uterine fundus. EXTREMITIES: Without any cyanosis, clubbing, or edema and are nontender to palpation bilaterally. There is 1+ bilateral lower extremity edema and are nontender to palpation bilaterally. PELVIC: Demonstrates normal external genitalia and BUS with normal vaginal mucosa and cervix. There is no cervical motion tenderness. There does not appear to be any significant uterine descensus, but there is a roughly grade 3 cystocele noted, which has caused the patient discomfort. Rectum appears to be well supported. The uterus itself is atrophic, mid plane, mobile, nontender, normal in shape. The adnexa are nonpalpable and nontender without mass bilaterally. ASSESSMENT AND PLAN: Symptomatic cystocele: The patient has requested surgical repair as local treatment has failed. She was aware of the option of potential pessary. She has requested definitive surgical therapy and we therefore will plan for anterior colporrhaphy with possible vaginal hysterectomy and/or posterior colporrhaphy if prolapse is demonstrated under anesthesia, not seen in the office. The risks and complications of the procedures have been discussed at length including the risks for bleeding, bleeding requiring transfusion, infection, injury to local structures to include the bowel, bladder, and ureters. She has understood and agreed to proceed. MMODL / IJN: [id number] /
[~2023-06-24 10:33] MED LIST changes: -ACETAMINOPHEN TAB 500 MG TAB PO ONE; -DEXAMETHASONE SOD PHOSPHATE 10 MG/ML 1 ML VIAL IV ONE; +DEXAMETHASONE SOD PHOSPHATE 4 MG/ML 1 ML VIAL IV ONE; -FAMOTIDINE 20 MG/2 ML VIAL IV PRN; -HYDROmorphone 1 MG/ML 1 ML SYRINGE IVP PRN; +LACTATED RINGERS 1,000 ML IV SCH; -LIDOCAINE 1% 20 ML VIAL (10MG/ML) FOR IV START INTRADERMA PRN; -MELOXICAM 7.5 MG TAB PO ONE; +MIDAZOLAM 2 MG/2 ML VIAL IV PRN; -TRANEXAMIC ACID 1,000 MG in SODIUM CHLORIDE 0.9% 100 ML IVPB ONE; -ceFAZolin 2 GM in SODIUM CHLORIDE 0.9% 100 ML IVPB ONE; +fentaNYL (PF) 50 MCG/ML 2 ML AMP IV PRN
[2023-06-24 11:39] LABS: Basophils # (A) 0.1 k/uL (0-0.2); Basophils % (A) 1 %; Eosinophils # (A) 0.1 k/uL (0-0.7); Eosinophils % (A) 1 %; HCT 35.2 % (34.0-46.0); HGB 11.3 gm/dL (11.4-16.0); Hypochromasia Slight; Lymphocytes # (A) 2.5 k/uL (1.0-4.8); Lymphocytes % (A) 26 %; MCH 25.9 pg (25.0-35.0); MCHC 32.1 g/dL (31.0-37.0); MCV 80.6 fL (80.0-100.0); Mean Platelet Volume 8.4; Monocytes # (A) 0.4 k/uL (0-1.0); Monocytes % (A) 5 %; Neutrophils % (A) 64 %; Platelet Count 340 k/uL (150-450); RBC 4.37 m/uL (3.80-5.40); RDW 15.9 % (11.5-15.5); WBC 9.4 k/uL (3.8-10.6)
[2023-06-24] MEDS ORDERED: BACITRACIN ZINC 500 UNIT/GM OINT 28.4 GM TUBE TOPICAL ONE ×2 (12:18→13:06)
[2023-06-24] MEDS ORDERED: VASOPRESSIN 20 UNIT/ML 1 ML VIAL IM ONE ×2 (12:19→12:45)
[2023-06-24] MEDS ORDERED: NEOSTIGMINE 1 MG/ML 10 ML VIAL ONE (12:25)
[2023-06-24] MEDS ORDERED: PROPOFOL 10 MG/ML 20 ML VIAL IV ONE (12:25)
[2023-06-24] MEDS ORDERED: GLYCOPYRROLATE 0.2 MG/ML 2 ML VIAL ONE (12:25)
[2023-06-24] MEDS ORDERED: LIDOCAINE 1% INJ 10MG/ML (20 ML MDV) ONE (12:25)
[2023-06-24] MEDS ORDERED: ROCURONIUM 10 MG/ML (5 ML VIAL) IV ONE (12:25)
[2023-06-24] MEDS ORDERED: fentaNYL (PF) 50 MCG/ML 2 ML AMP ONE (12:25)
[2023-06-24] MEDS ORDERED: SUCCINYLCHOLINE CHLORIDE 200 MG/10 ML VIAL IV ONE (12:25)
[2023-06-24] MEDS ORDERED: KETOROLAC 15 MG/ML 1 ML VIAL IVP PRN (13:24)
[2023-06-24] MEDS ORDERED: METOCLOPRAMIDE 5 MG/ML 2 ML VIAL IVP PRN (13:24)
[2023-06-24] MEDS ORDERED: diphenhydrAMINE 50 MG/ML 1 ML VIAL IVP PRN (13:24)
[2023-06-24] MEDS ORDERED: ONDANSETRON 4 MG/2 ML VIAL IVP PRN (13:24)
[2023-06-24] MEDS ORDERED: SIMETHICONE 80 MG CHEWABLE PO PRN (13:24)
--- NOTE | 2023-06-24 13:32 | P.OP ---
Date of Procedure: 06/24/23 Preoperative Diagnosis: #1. Symptomatic grade 3 cystocele Postoperative Diagnosis: Same Procedure(s) Performed: #1. Anterior colporrhaphy Anesthesia: DANDRE Surgeon: Kevin Mcmillan Adviser Sales #1: Brigida Douglas Estimated Blood Loss (ml): 25 IV fluids (ml): 400 Urine output (ml): 100 Pathology: none sent Condition: stable Disposition: PACU Operative Findings: Under anesthesia, careful examination demonstrated a grade 3 cystocele with minimal uterine prolapse and minimal rectocele present. As a result, only cystocele repair was undertaken. Clear urine was seen before and after the procedure. Description of Procedure: The patient was prepped and draped in the usual fashion after general endotracheal anesthesia was administered by the anesthesiologist. A weighted speculum was placed and examination carried out with the findings as noted above. After determining that only a cystocele repair was necessary, Allis clamps were placed at the cervicovaginal junction at 2:00 and 10:00 above the cervix. The cervical vaginal and vesicovaginal mucosa was infused with diluted vasopressin solution. An incision was made from our last Allis and the Allises re-affixed in the midline. A Metzenbaum scissors was utilized to undermine the vaginal mucosa in the midline from the cervix to the urethral apex. Allises were placed along the margins to the apex. Sharp and blunt dissection was utilized to sweep the overlying mucosa from the underlying tissues bilaterally. After adequate dissection had been carried out, a Hopson catheter was placed demonstrating clear urine. Serial Alycia plication stitches were placed from the urethral apex using 2-0 PDS to the cervical apex. Excellent tissue was found and repair appeared to be solid. The intervening redundant vaginal mucosa was trimmed bilaterally. The vaginal mucosa was closed with a running locking stitch of 2-0 Vicryl from the urethral apex to the cervix. Clear urine was again redemonstrated with a mobile Hopson catheter. The vagina was packed with one-inch iodophor gauze covered with bacitracin ointment. All instrumentation was removed. Estimated blood loss for the case was approximately 25 mL. There were no complications. All sponge, instrument, and needle counts were correct. The patient tolerated the procedure well and proceeded to the recovery room in stable condition.
[2023-06-24 14:25] LABS: Glucose,Whole Blood 161 mg/dL (70-110)
[2023-06-24] MEDS: LACTATED RINGERS 1,000 ML IV SCH (15:12)
[2023-06-24] MEDS ORDERED: ALBUTEROL HFA INHALER INHALATION PRN (16:05)
[2023-06-24] MEDS ORDERED: PANTOPRAZOLE 40 MG TABLET PO PRN (16:05)
[2023-06-24] MEDS ORDERED: MONTELUKAST 10 MG TAB PO SCH (21:00)
[2023-06-24] MEDS ORDERED: SERTRALINE 50 MG TAB PO SCH (21:00)
[2023-06-24] MEDS: ATORVASTATIN 20 MG TAB PO SCH (21:24)
[2023-06-24] MEDS: SENNOSIDES-DOCUSATE SODIUM 1 EACH TAB PO SCH (21:24)
[2023-06-24] MEDS: metFORMIN 500 MG TAB PO SCH (21:24)
[2023-06-25] MEDS: LACTATED RINGERS 1,000 ML IV SCH (01:28)
[2023-06-25] MEDS: IBUPROFEN 600 MG TAB PO PRN ×2 (01:53→08:06)
[2023-06-25 07:56] LABS: Basophils % (A) 0 %; Eosinophils % (A) 0 %; HCT 40.2 % (34.0-46.0); HGB 12.7 gm/dL (11.4-16.0); Hypochromasia Moderate; Lymphocytes # (A) 1.2 k/uL (1.0-4.8); Lymphocytes % (A) 10 %; MCH 25.8 pg (25.0-35.0); MCHC 31.5 g/dL (31.0-37.0); MCV 81.9 fL (80.0-100.0); Mean Platelet Volume 8.5; Monocytes # (A) 0.4 k/uL (0-1.0); Monocytes % (A) 3 %; Neutrophils # (A) 10.7 k/uL (1.3-7.7); Neutrophils % (A) 85 %; Platelet Count 235 k/uL (150-450); RBC 4.91 m/uL (3.80-5.40); WBC 12.6 k/uL (3.8-10.6)
[2023-06-25] MEDS: metFORMIN 500 MG TAB PO SCH (08:05)
[2023-06-25] MEDS: SENNOSIDES-DOCUSATE SODIUM 1 EACH TAB PO SCH (08:06)
[2023-06-25] MEDS ORDERED: MULTIVITAMINS, THERA 1 EACH TAB PO SCH (09:00)
[2023-06-25] MEDS ORDERED: LOSARTAN 50 MG TAB PO SCH (09:00)
[2023-06-25] MEDS ORDERED: POTASSIUM CHLORIDE ER 10 MEQ TAB.ER.PRT PO SCH (09:00)
[2023-06-25] MEDS ORDERED: FERROUS SULFATE 325 MG TAB PO SCH (09:00)
[2023-06-25] MEDS ORDERED: DILTIAZEM CD 120 MG CAP.ER.24H PO SCH (09:00)
[2023-06-25] MEDS ORDERED: FLUTICASONE 110 MCG INHALER INHALATION SCH (09:00)
[2023-06-25] MEDS ORDERED: TORSEMIDE 20 MG TAB PO SCH (09:00)
[2023-06-25 11:06] VITALS: BP 134/66; PULSE 68; RESP 17; TEMP 97.9
--- NOTE | 2023-06-25 11:54 | P.DS ---
Providers Expected date of discharge: 06/25/23 Attending physician: Kevin Mcmillan Primary care physician: Duong Vazquez - Discharge Diagnosis(es) (1) Cystocele Current Visit: Yes Status: Acute Hospital Course: The patient is a 72-year-old 2 para 2001 who presented the office with complaints of prolapse and was found to have a grade 2-3 cystocele which was fairly symptomatic for her. She had a trial of local estrogen which failed to alleviate symptoms and has requested definitive therapy. Examination in the office we are unable to demonstrate any significant uterine prolapse or rectocele present. She was taken the operating room where the findings were confirmed as above with the finding of a grade 3 cystocele but no significant uterine or rectal prolapse. As a result, she underwent anterior colporrhaphy and uncomplicated fashion. She was tolerating regular diet by the evening of day of surgery. On the morning of postoperative day #1, the vaginal packing and Hopson catheter were removed and she was able to void without difficulty well over half of the volume of her bladder with minimal postvoid residual present by euro scan device. She was deemed stable for discharge on post operative day #1 was discharged home to follow-up in the office in 2 weeks for recheck in 6 weeks routinely. Discharge instructions included calling for any significantly incr eased bleeding, fever, pain, urinary complaints, GI complaints, or anything else that concerned her. She was most importantly instructed to do no heavy lifting over the next 6 weeks. She understood her instructions and agrees to follow up as noted above. Discharge medications included only her normal home medications plus [id number] analgesic pain medications. Discharge hemoglobin and he matocrit were 12.7 and 40.2 respectively. Procedures: #1. Anterior colporrhaphy #2. Successful voiding trial Patient Condition at Discharge: Stable Plan - Discharge Summary Discharge Rx Participant: Yes New Discharge Prescriptions: No Action RX: Sertraline HCl [Zoloft] 50 mg PO HS RX: Montelukast Sodium [Singulair] 10 mg PO HS RX: Torsemide [Demadex] 20 mg PO QAM RX: Potassium Chloride [Klor-Con 10 ER] 10 meq PO QAM RX: Losartan Potassium [Cozaar] 50 mg PO QAM RX: Multivitamins, Thera [Multivitamin (formulary)] 1 tab PO DAILY RX: Albuterol Sulfate [Ventolin HFA] 2 puff INHALATION Q6H PRN PRN Reason: Shortness Of Breath Or Wheezing Beclomethasone Dipropionate [Qvar 80 mcg] 1 puff INHALATION QAM RX: metFORMIN HCL [Glucophage] 1,000 mg PO BID RX: Omeprazole 20 mg PO DAILY PRN PRN Reason: Stomach problems Atorvastatin [Lipitor] 20 mg PO DAILY RX: Ferrous Sulfate [Iron] 1 tab PO DAILY dilTIAZem HCL [Cartia Xt] 120 mg PO QAM Ibuprofen [Motrin] 800 mg PO Q8H PRN PRN Reason: Pain Discharge Medication List RX: Losartan Potassium [Cozaar] 50 mg PO QAM 07/16/14 [History] RX: Montelukast Sodium [Singulair] 10 mg PO HS 07/16/14 [History] RX: Multivitamins, Thera [Multivitamin (formulary)] 1 tab PO DAILY 07/16/14 [History] RX: Potassium Chloride [Klor-Con 10 ER] 10 meq PO QAM 07/16/14 [History] RX: Sertraline HCl [Zoloft] 50 mg PO HS 07/16/14 [History] RX: Torsemide [Demadex] 20 mg PO QAM 07/16/14 [History] RX: Albuterol Sulfate [Ventolin HFA] 2 puff INHALATION Q6H PRN 07/17/14 [History] Beclomethasone Dipropionate [Qvar 80 mcg] 1 puff INHALATION QAM 08/28/16 [History] RX: metFORMIN HCL [Glucophage] 1,000 mg PO BID 10/30/16 [History] Atorvastatin [Lipitor] 20 mg PO DAILY 06/16/23 [History] Ibuprofen [Motrin] 800 mg PO Q8H PRN 06/16/23 [History] RX: Omeprazole 20 mg PO DAILY PRN 06/16/23 [History] dilTIAZem HCL [Cartia Xt] 120 mg PO QAM 06/16/23 [History] RX: Ferrous Sulfate [Iron] 1 tab PO DAILY 06/24/23 [History] Follow up Appointment(s)/Referral(s): Kevin Mcmillan MD [STAFF PHYSICIAN] - 2 Weeks Discharge Disposition: HOME SELF-CARE
[2023-06-25] MEDS: ATORVASTATIN 20 MG TAB PO SCH (12:18)
[2023-06-25] MEDS ORDERED: ACETAMINOPHEN TAB 325 MG TAB PO PRN (13:25)
== END 2023-06-25 12:39 | disposition home or self-care (01) ==
LOC: OR 10:33 → 4FBP 13:24 → OR 06-25 12:39
PROVIDERS: ATTEND Obstetrics & Gynecology
DX: N81.11 Cystocele, midline (principal); I10 Essential (primary) hypertension; E11.9 Type 2 diabetes mellitus without complications; J45.909 Unspecified asthma, uncomplicated; F41.9 Anxiety disorder, unspecified; Z79.84 Long term (current) use of oral hypoglycemic drugs; Z79.51 Long term (current) use of inhaled steroids; Z79.899 Other long term (current) drug therapy
CPT/HCPCS: 94640 ×2; 85025 ×2; 57240; J1100; J0690; J2405